=== PATIENT | female | born 1985 | race Asian ===

== ENCOUNTER 2022-07-15 16:16 | Emergency (ER) | payer OTHER ==
[~2022-07-15] VITALS: Ht 157.5 cm; Wt 83.9 kg
[2022-07-15 16:20] VITALS: TEMP 99.2
[2022-07-15 17:10] VITALS: BP 112/71
== END 2022-07-15 17:10 | disposition home or self-care (01) ==
LOC: ED 16:16
DX: O26.851 Spotting complicating pregnancy, first trimester (principal); Z3A.01 Less than 8 weeks gestation of pregnancy
CPT/HCPCS: 36415; 81002; 81025; 99283

== ENCOUNTER 2022-07-20 07:05 | Emergency (ER) | payer OTHER ==
[~2022-07-20] VITALS: Ht 157.5 cm; Wt 83.9 kg
[2022-07-20 07:10] VITALS: TEMP 98
[2022-07-20 11:07] VITALS: BP 115/87
== END 2022-07-20 11:07 | disposition home or self-care (01) ==
LOC: ED 07:05
DX: O20.0 Threatened abortion (principal); Z3A.01 Less than 8 weeks gestation of pregnancy
CPT/HCPCS: 84702; 99283; 99284

== ENCOUNTER 2022-08-23 13:08 | Emergency (ER) | payer OTHER ==
[~2022-08-23] VITALS: Ht 157.5 cm; Wt 83.9 kg
[2022-08-23 13:17] VITALS: BP 121/55; TEMP 98.2
[2022-08-23 13:51] LABS: PLATELET COUNT 225 K/uL (152-353)
== END 2022-08-23 18:02 | disposition home or self-care (01) ==
LOC: ED 13:08
PROVIDERS: Emergency Medicine Emergency Medical Services
DX: O03.4 Incomplete spontaneous abortion without complication (principal); O26.891 Other specified pregnancy related conditions, first trimester; Z3A.01 Less than 8 weeks gestation of pregnancy
CPT/HCPCS: 81000; 81025; 85027; 86850; 86900; 86901; 99283; J2790